=== PATIENT | male | born 2000 | race Caucasian/White ===

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

== ENCOUNTER 2021-05-05 23:13 | Emergency (ER) | payer OTHER, BC ==
[~2021-05-05] VITALS: Ht 182 cm; Wt 100.0 kg
[2021-05-05] MEDS ORDERED: IBUPROFEN 800 MG (MOTRIN) TAB PO STA (23:57)
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
[2021-05-06 00:38] VITALS: BP 133/81
== END 2021-05-06 00:40 | disposition home or self-care (01) ==
LOC: EDUNIT# 23:13 → ER 23:15
DX: M54.5 Low back pain (principal)
CPT/HCPCS: 99283